=== PATIENT | female | born 1940 | race Caucasian/White ===

== ENCOUNTER 2017-12-01 14:17 | Outpatient (CLI) | payer MEDICARE, OTHER | END 2017-12-01 14:18 | disposition home or self-care (01) | LOC: BICMAMMO 14:17 | PROVIDERS: ATTEND Obstetrics & Gynecology | DX: Z12.31 Encounter for screening mammogram for malignant neoplasm of breast (principal) | CPT/HCPCS: 77063; 77067 ==

== ENCOUNTER 2018-10-28 12:30 | Inpatient (IN) | payer MEDICARE, OTHER ==
--- NOTE | 2018-11-04 13:42 | HP ---
HISTORY OF PRESENT ILLNESS: The patient is a 78-year-old female with a 2-year history of progressive right hip pain without injury. She also had some history of back pain with some radiation to her right leg. She had back surgery and fusion by Dr. Nix on 07/30/2018, which improved her back pain, but she has had continued right hip pain and groin pain, which is worse with ambulation. She has had persistent pain despite rest, NSAIDs, and previous cortisone injection and use of anti-inflammatory medication. She has not taken anti-inflammatory medication recently to prevent delayed healing of her lumbar fusion. Her hip pain is now interfering with day-to-day activities including walking, getting dressed, and sleeping. PAST MEDICAL HISTORY: The patient has history of hypertension and osteoporosis. CURRENT MEDICATIONS: 1. Multivitamins. 2. Vitamin D. 3. Aspirin 81 mg daily. 4. Carvedilol. 5. Crestor. 6. Losartan. 7. Hydrochlorothiazide. 8. Pantoprazole. ALLERGIES: SHE IS ALLERGIC TO SULFA. FAMILY HISTORY: Otherwise unremarkable. SOCIAL HISTORY: Otherwise unremarkable. REVIEW OF SYSTEMS: Otherwise unremarkable. PHYSICAL EXAMINATION: GENERAL: Reveals a healthy female. HEENT: Unremarkable. NECK: Supple. CHEST: Clear. HEART: Regular rate and rhythm. ABDOMEN: Soft and nontender. PELVIC: Deferred. RECTAL: Deferred. BREASTS: Deferred. EXTREMITIES: Pertinent findings of the right hip; her leg lengths were equal. There is tenderness over the greater trochanter and the anterior right hip. There is decreased range of motion on the right hip and groin pain with internal rotation of the hip, which reproduces her pain. There is a right antalgic gait. NEUROVASCULAR: Intact. Pulses are 1+. DIAGNOSTIC DATA: X-rays of the right hip reveals severe degenerative arthritis with no joint space remaining. There is a hardware present in the lower lumbar spine. IMPRESSION: 1. Degenerative arthritis, right hip. 2. Status post lumbar fusion. 3. History of hypertension. 4. History of osteoporosis. PLAN: Right total hip replacement. The nature of the surgery, length of recovery, and potential complications such as infection, loss of motion, incomplete relief , neurovascular injury, TE phenomena,, leg length discrepancy, possible transfusion, and need for revision have been discussed in detail. Job ID: [id number] [facility]
[2018-11-08] MEDS ORDERED: Fentanyl 100 MCG/2 ML VIAL ONE (06:18)
[2018-11-08] MEDS ORDERED: Midazolam HCl 2 mg/2 ml Vial ONE (06:18)
[2018-11-08] MEDS ORDERED: CEFAZOLIN 2 GM/50 ML BAG ONE (06:31)
[2018-11-08] MEDS ORDERED: Tranexamic Acid 1,000 MG/10 ML VIAL ONE ×2 (06:59→09:13)
[2018-11-08] MEDS ORDERED: Sodium Chloride 0.9% 100 ML ONE (06:59)
[2018-11-08] MEDS ORDERED: Naloxone HCl 0.4 mg/ml Vial IV PRN (07:15)
[2018-11-08] MEDS ORDERED: Promethazine HCl 25 MG SUPP PR PRN (07:15)
[2018-11-08] MEDS ORDERED: diphenhydrAMINE 50 MG/ML VIAL IM PRN (07:15)
[2018-11-08] MEDS ORDERED: Zolpidem Tartrate 5 MG TAB PO PRN ×2 (07:15→10:15)
[2018-11-08] MEDS ORDERED: diphenhydrAMINE 25 MG CAP PO PRN ×2 (07:15→10:15)
[2018-11-08] MEDS ORDERED: Ondansetron PF 4 MG/2 ML Vial IVP PRN ×2 (07:15→10:15)
[2018-11-08] MEDS ORDERED: traMADol HCl 50 MG TAB PO PRN ×2 (07:15→10:15)
[2018-11-08] MEDS ORDERED: Bupivacaine 0.25% 10 ML VIAL EPIDURAL PRN (07:15)
[2018-11-08] MEDS ORDERED: diphenhydrAMINE 50 MG/ML VIAL IVP PRN (07:15)
[2018-11-08] MEDS ORDERED: Hydrocerin (Eucerin) Cream 120 gm Jar TOP PRN (07:15)
[2018-11-08] MEDS ORDERED: Ropivacaine 0.2% HCl/PF 20 ML ONE (07:15)
[2018-11-08] MEDS ORDERED: Promethazine HCl 25 MG/ML VIAL IM PRN ×2 (07:15→08:06)
[2018-11-08] MEDS ORDERED: Naloxone HCl 0.4 mg/ml Vial IVP PRN (07:15)
[2018-11-08] MEDS ORDERED: Ondansetron HCl/PF 4 MG/2 ML Vial IVP PRN (08:06)
[2018-11-08] MEDS ORDERED: Promethazine HCl 25 MG/ML VIAL SLOW IVP PRN ×2 (08:06→10:15)
[2018-11-08] MEDS ORDERED: Tranexamic Acid 1,000 MG in Sodium Chloride 0.9% 100 ML IVPB SCH ×2 (09:15→10:15)
[2018-11-08] MEDS ORDERED: Fentanyl/Bupivacaine 100 ML EPIDURAL ONE (09:18)
[2018-11-08] MEDS ORDERED: Ondansetron PF 4 MG/2 ML Vial ONE ×2 (09:29→20:44)
--- NOTE | 2018-11-08 10:01 | OP ---
DATE OF PROCEDURE: 11/08/2018 PREOPERATIVE DIAGNOSIS: End-stage bicompartmental osteoarthritis, right hip. POSTOPERATIVE DIAGNOSIS: End-stage bicompartmental osteoarthritis, right hip. PROCEDURE PERFORMED: Press-fit right total hip arthroplasty. SURGEON: Prabhakar Babcock MD [employer] TR[employer] DRIVER: Sriram Jiménez PA-C ANESTHESIA: General via endotracheal tube augmented with indwelling epidural. COMPONENTS USED: [employer] Accolade size 3 primary press-fit hip stem with a Tritanium size 58 hemispherical press-fit acetabular shell, a 36 mm 10-degree polyethylene fixed bearing insert, and a 36 mm metallic femoral head with +5 neck offset. ESTIMATED BLOOD LOSS: 200 mL. INPUT: 2 L of crystalloid. OUTPUT: 600 mL of clear yellow urine. DRAINS: None. SPECIMENS: None. COMPLICATIONS: None. COUNTS: Correct. FINDINGS: End-stage severe degenerative bicompartmental disease, flattening of the femoral head, [id number] arthrosis, periarticular osteophyte formation, large serous effusion, and hypertrophic synovium. INDICATIONS FOR SURGERY: Anali is a 78-year-old white female, who has had progressive right hip, groin, and thigh pain and problem with standing and walking for the last 5 to 7 years. She has failed conservative management and elected to proceed with total hip arthroplasty as definitive treatment of her pain. PROCEDURE IN DETAIL: After informed consent was obtained in the preoperative holding area, the patient was taken to the operative suite where general anesthesia was induced. The patient was then positioned in the lateral decubitus position. The hip was then prepped and draped in usual sterile fashion. The patient received preoperative antibiotics. Prior to incision, time-out was called and all members of the surgical team agreed upon site, surgeon, and patient. After this, a longitudinal incision was made directly over the trochanter, noted by palpation extending 2 fingerbreadths above and below the trochanter. The deeper subcutaneous layer was undermined with Bovie electrocautery. The iliotibial band was encountered and incised sharply and the plane below this was developed bluntly. A Charnley retractor was placed to hold this opened. The lateral aspect of the trochanter and the abductor muscles were encountered and then reflected anteriorly off the trochanter using Bovie electrocautery. Once this was completed, the anterior capsule was then encountered and identified and copious capsulotomy was carried out, exposing the femoral neck and head. Dislocation maneuver was then performed and an in situ provisional neck cut was then made using the oscillating saw. Attention was then turned to acetabular preparation. Sequential reaming was carried out up to the appropriate diameter and a trial was then malleted into place with good firm resistance and no pullout. The permanent acetabular shell was then malleted squarely into place, as was the appropriate liner. Once completed, the wound was copiously irrigated and attention was then turned to femoral preparation. Flexion and external rotation were performed of the exposed thigh and femoral elevators were then placed at the proximal aspect of the wound. Canal finder was used to establish the length of the canal and sequential reaming was carried out, followed by broaching. Once the appropriate stability was established with the trial broaches with flexion, extension and rotational stability, we did trial with neutral and 2 mm offset incremental necks. Once the appropriate size was decided upon, with good stability noted with flexion, extension, internal and external rotation and shuck being negative, we removed the femoral trial broach and malletted into place the permanent prosthesis with good firm fit, which was also stable to rotation. Again, the hip felt very stable to flexion, extension, internal and external rotation. Leg lengths appeared near anatomic clinically and we were quite happy with prosthesis placement. Copious irrigation was then carried out through the entirety of the wound. Primary closure of the abductors was accomplished with interrupted #2 Vicryl [id number] stitches and the IT band was then closed with interrupted #2 Vicryl, oversewn with a #2 running barbed Quill stitch. Subcutaneous fascia was closed with running barbed Quill stitch and a subcuticular Monocryl barbed Quill stitch was used for skin closure and augmented with skin cement. A sterile dressing was applied. The procedure was terminated without any complication. All counts were correct. The patient was awakened in the operative suite and taken to the recovery room in stable condition. Job ID: [id number]
[2018-11-08] MEDS ORDERED: Acetaminophen/Codeine 30-300mg Tablet PO PRN ×2 (10:15)
[2018-11-08] MEDS ORDERED: Fentanyl 100 MCG/2 ML VIAL SLOW IVP PRN ×2 (10:15)
[2018-11-08] MEDS ORDERED: CEFAZOLIN/Water 2 GM/20 ML SYRINGE SLOW IVP SCH (10:15)
[2018-11-08] MEDS ORDERED: Aspirin 81 mg Enteric Coated Tablet PO SCH (10:45)
[2018-11-08] MEDS ORDERED: Losartan 25 MG TAB PO SCH (10:45)
[2018-11-08] MEDS ORDERED: Carvedilol 25 MG TAB PO SCH (10:45)
[2018-11-08] MEDS ORDERED: Hydrochlorothiazide 25 MG TAB PO SCH (10:45)
--- NOTE | 2018-11-08 11:16 | RAD ---
TWO VIEWS OF RIGHT HIP: INDICATION: History of right hip pain and postop right hip. COMPARISON: None. FINDINGS: There is a right total hip prosthesis that projects in the expected position. There is instrumentati on involving the lower lumbar spine. No definite acute osseous abnormality is evident. IMPRESSION: Postoperative right hip. Right total hip prosthesis projects in the expected position without gross evidence of complication. POS: TPC
[2018-11-08] MEDS: Acetaminophen 1,000 MG in Premix Bag 1 BAG IVPB PRN ×2 (11:48→19:59)
[2018-11-08] MEDS: Sodium Chloride 0.9% 1,000 ML IV SCH ×2 (12:02→21:35)
[2018-11-08] MEDS: CEFAZOLIN 2 GM/50 ML-DEXTROSE 2 GM in Premix Bag 1 BAG IVPB SCH ×2 (15:07→21:35)
[2018-11-08] MEDS ORDERED: Vancomycin HCl 1 GM in Premix Bag 1 BAG IVPB SCH (18:00)
[2018-11-08] MEDS: Rosuvastatin 10 MG TAB PO SCH (19:58)
[2018-11-08] MEDS: Loratadine 10 MG TAB PO SCH (19:58)
[2018-11-08] MEDS: Carvedilol 25 MG TAB PO SCH (19:59)
[2018-11-08] MEDS: Aspirin 81 mg Enteric Coated Tablet PO SCH (19:59)
[2018-11-08] MEDS ORDERED: Lidocaine 1% PF 5 ML VIAL ONE (20:44)
[2018-11-08] MEDS ORDERED: PROPOFOL 200 MG/20 ML VIAL ONE (20:44)
[2018-11-08] MEDS ORDERED: ePHEDrine/0.9% NaCl/PF SYRINGE 50 mg/10 ml ONE (20:44)
[2018-11-08] MEDS ORDERED: Glycopyrrolate 0.2 MG/ML 5 ML SYRINGE ONE (20:44)
[2018-11-08] MEDS ORDERED: PHENYLEPHRINE-NS 100 MCG/ML 10 ML SYRINGE ONE (20:44)
--- NOTE | 2018-11-08 22:39 | PDOC.PN ---
- Subjective Encounter Start Date: 11/08/18 Encounter Start Time: 13:00 Patient seen and examined for med mngt. No new complaints. Follows Dr Eaton. - Objective MAR Reviewed: Yes Vital Signs & Weight: Vital Signs (12 hours) Temp Pulse Resp BP Pulse Ox 11/08/18 20:44 93 L 11/08/18 20:21 98.8 F 80 20 152/69 H 93 L 11/08/18 12:00 95 Weight Weight 150 lb I&O: 11/07/18 11/08/18 11/09/18 06:59 06:59 06:59 Intake Total 1550 Output Total 750 Balance 800 EKG Reviewed by me: Yes (SR) Phys Exam - Physical Examination Constitutional: NAD Respiratory: no wheezing, no rhonchi Cardiovascular: RRR, no rub Gastrointestinal: soft, non-tender, positive bowel sounds Musculoskeletal: no edema Neurological: moves all 4 limbs Dx/Plan (1) HTN (hypertension) Code(s): I10 - ESSENTIAL (PRIMARY) HYPERTENSION Status: Chronic (2) HLD (hyperlipidemia) Code(s): E78.5 - HYPERLIPIDEMIA, UNSPECIFIED Status: Chronic (3) GERD (gastroesophageal reflux disease) Code(s): K21.9 - GASTRO-ESOPHAGEAL REFLUX DISEASE WITHOUT ESOPHAGITIS Status: Chronic (4) Chronic insomnia Code(s): F51.04 - PSYCHOPHYSIOLOGIC INSOMNIA Status: Chronic (5) CKD (chronic kidney disease) stage 3, GFR 30-59 ml/min Code(s): N18.3 - CHRONIC KIDNEY DISEASE, STAGE 3 (MODERATE) Status: Chronic - Plan DVT proph w/SCDs * Cont Coreg * Hold Losartan and HCTZ * Add PRN HTN med * Cont Protonix * AM labs * Wll follow. Thank you for this consultation. * Full code. DPOA - self/family Review of Systems - Review of Systems Respiratory: negative: Cough, Dry, Shortness of Breath, Hemoptysis, SOB with Excertion, Pleuritic Pain, Sputum, Wheezing Cardiovascular: negative: chest pain, palpitations, orthopnea, paroxysmal nocturnal dyspnea, edema, light headedness, other - Medications/Allergies Allergies/Adverse Reactions: Allergies Allergy/AdvReac Type Severity Reaction Status Date / Time hydrocodone Allergy Nausea Verified 11/01/18 16:44 Sulfa (Sulfonamide Allergy Verified 12/06/18 12:54 Antibiotics) Medications: Current Medications Acetaminophen (Tylenol) 650 mg PO Q4H PRN PRN Reason: Headache/Fever or Pain Aspirin (Ecotrin) 81 mg PO BID [facility] Last Admin: 11/08/18 19:59 Dose: 81 mg Carvedilol (Coreg) 25 mg PO BID [facility] Last Admin: 11/08/18 19:59 Dose: 25 mg Diphenhydramine HCl (Benadryl) 25 mg PO Q3H PRN PRN Reason: Itching Diphenhydramine HCl (Benadryl) 25 mg IM Q3H PRN PRN Reason: Itching Diphenhydramine HCl (Benadryl) 25 mg IVP Q3H PRN PRN Reason: Itching Emollient Cream (Hydrocerin Cream) 0 gm TOP PRN PRN PRN Reason: Itching Ferrous Gluconate (Fergon) 324 mg PO BID-[facility] Hydrochlorothiazide (Hydrochlorothiazide) 12.5 mg PO DAILY [facility] Fentanyl Citrate (Fentanyl/Bupivacaine) 100 mls @ 0 mls/hr EPIDURAL INF [facility] Acetaminophen 1,000 mg/ Device 100 mls @ 400 mls/hr IVPB Q6H PRN PRN Reason: PAIN/FEVER Stop: 11/09/18 07:12 Last Admin: 11/08/18 19:59 Dose: 100 mls Sodium Chloride (Normal Saline 0.9%) 1,000 mls @ 100 mls/hr IV .Q10H [facility] Last Admin: 11/08/18 21:35 Dose: 1,000 mls Cefazolin Sodium/Dextrose 2 gm (/ Device) 50 mls @ 100 mls/hr IVPB 0700,1500, 2300 [facility] Stop: 11/08/18 23:29 Last Admin: 11/08/18 21:35 Dose: 50 mls Iron/Minerals/Multivitamins (Theragran M) 1 tab PO DAILY [facility] Loratadine (Claritin) 10 mg PO HS [facility] Last Admin: 11/08/18 19:58 Dose: 10 mg Losartan Potassium (Cozaar) 25 mg PO DAILY [facility] Miscellaneous Information (Communication Order-Pharmacy) 1 each FS ASDIR [facility] Naloxone HCl (Narcan) 0.2 mg IV Q5MIN PRN PRN Reason: RR <=8 OR OBTUNDED/UNAROUSABLE Naloxone HCl (Narcan) 0.1 mg IVP Q15MIN PRN PRN Reason: URINARY RETENTION Ondansetron HCl (Zofran) 4 mg IVP Q6H PRN PRN Reason: Nausea/Vomiting Pantoprazole Sodium (Protonix) 40 mg PO DAILY [facility] Promethazine HCl (Phenergan) 12.5 mg IM Q4H PRN PRN Reason: Nausea Promethazine HCl (Phenergan Suppository) 25 mg [place] Q4H PRN PRN Reason: Nausea/Vomiting Promethazine HCl (Phenergan) 12.5 mg SLOW IVP Q4H PRN PRN Reason: Nausea/Vomiting Rosuvastatin Calcium (Crestor) 10 mg PO HS [facility] Last Admin: 11/08/18 19:58 Dose: 10 mg Senna/Docusate Sodium (Senokot S) 2 tab PO BID [facility] Sodium Chloride (Flush - Normal Saline) 10 ml IVF Q12HR [facility] Last Admin: 11/08/18 21:44 Dose: Not Given Sodium Chloride (Flush - Normal Saline) 10 ml IVF PRN PRN PRN Reason: Saline Flush Tramadol HCl (Ultram) 50 mg PO Q6H PRN PRN Reason: Mild Pain 1-3 Last Admin: 11/08/18 15:16 Dose: 50 mg Tramadol HCl (Ultram) 100 mg PO Q6H PRN PRN Reason: Moderate Pain 4-6 Zolpidem Tartrate (Ambien) 5 mg PO HSPRN PRN PRN Reason: Insomnia Last Admin: 11/08/18 21:34 Dose: 5 mg
[2018-11-08] MEDS ORDERED: hydrALAZINE 20 MG/ML VIAL SLOW IVP PRN (22:42)
[2018-11-09] MEDS: traMADol HCl 50 MG TAB PO PRN ×2 (00:50→13:05)
[2018-11-09] MEDS: Acetaminophen 1,000 MG in Premix Bag 1 BAG IVPB PRN (02:16)
[2018-11-09] MEDS: Fentanyl/Bupivacaine 100 ML EPIDURAL SCH ×2 (02:19→17:47)
[2018-11-09 05:52] LABS: Hemoglobin 8.5 g/dL (12.0-16.0); Mean Corpuscular HGB CONC 33.9 g/dL (32.0-36.0); Mean Corpuscular Hemoglobin 30.1 pg (27.0-31.0); Mean Corpuscular Volume 88.9 fL (78.0-98.0); Mean Platelet Volume 8.4 fL (7.4-10.4); Platelet Count 185 thou/uL (130-400); RBC Distribution Width 11.6 % (11.5-14.5); White Blood Cell (WBC) Count 8.3 thou/uL (4.8-10.8)
[2018-11-09 06:13] LABS: Anion Gap 14 mmol/L (10-20); BUN (Urea Nitrogen) 24 mg/dL (9.8-20.1); Calc. Creatinine Clearance 25 mL/min (70-130); Calcium 8.8 mg/dL (7.8-10.44); Carbon Dioxide 24 mmol/L (23-31); Chloride 105 mmol/L (98-107); Estimated GFR-MDRD 24; Glucose 133 mg/dL (83-110); Magnesium 1.5 mg/dL (1.6-2.6); Potassium 3.5 mmol/L (3.5-5.1); Sodium 139 mmol/L (136-145)
[2018-11-09] MEDS: Sodium Chloride 0.9% 1,000 ML IV SCH ×2 (06:52→22:01)
[2018-11-09] MEDS: Ferrous Gluconate 324 MG TAB PO SCH ×2 (08:15→18:01)
[2018-11-09] MEDS: Carvedilol 25 MG TAB PO SCH (08:16)
[2018-11-09] MEDS: Aspirin 81 mg Enteric Coated Tablet PO SCH ×2 (08:16→20:58)
[2018-11-09] MEDS: Senokot S 8.6-50 MG TAB PO SCH ×2 (08:16→20:58)
[2018-11-09] MEDS: Multivitamin W/ Minerals 1 TAB PO SCH (08:16)
[2018-11-09] MEDS ORDERED: Hydrochlorothiazide 25 MG TAB PO SCH (09:00)
[2018-11-09] MEDS ORDERED: Losartan 25 MG TAB PO SCH (09:00)
[2018-11-09] MEDS: Acetaminophen 325 MG TAB PO PRN (13:08)
--- NOTE | 2018-11-09 18:49 | PDOC.PN ---
- Subjective Encounter Start Date: 11/09/18 Encounter Start Time: 12:30 Patient seen and examined for med mngt. No new complaints. No overnight events - Objective MAR Reviewed: Yes Vital Signs & Weight: Vital Signs (12 hours) Temp Pulse Resp BP BP Pulse Ox Pulse Ox 11/09/18 16:00 98.4 F 81 18 106/61 90 L 11/09/18 12:00 99.6 F 87 14 110/71 91 L 11/09/18 11:15 110/71 91 L 11/09/18 07:37 98.5 F 89 14 151/72 H 90 L 11/09/18 07:33 95 Weight Weight 150 lb I&O: 11/08/18 11/09/18 11/10/18 06:59 06:59 06:59 Intake Total 3300 Output Total 2625 Balance 675 Result Diagrams: 11/09/18 05:18 11/09/18 05:18 Phys Exam - Physical Examination Constitutional: NAD Musculoskeletal: no edema Neurological: moves all 4 limbs Psychiatric: A&O x 3 Dx/Plan (1) HTN (hypertension) Code(s): I10 - ESSENTIAL (PRIMARY) HYPERTENSION Status: Chronic (2) HLD (hyperlipidemia) Code(s): E78.5 - HYPERLIPIDEMIA, UNSPECIFIED Status: Chronic (3) GERD (gastroesophageal reflux disease) Code(s): K21.9 - GASTRO-ESOPHAGEAL REFLUX DISEASE WITHOUT ESOPHAGITIS Status: Chronic (4) Hypomagnesemia Code(s): E83.42 - HYPOMAGNESEMIA Status: Acute (5) Chronic insomnia Code(s): F51.04 - PSYCHOPHYSIOLOGIC INSOMNIA Status: Chronic (6) CKD (chronic kidney disease) stage 3, GFR 30-59 ml/min Code(s): N18.3 - CHRONIC KIDNEY DISEASE, STAGE 3 (MODERATE) Status: Chronic - Plan DVT proph w/SCDs * Cont Coreg - reduce dose * Losartan and HCTZ on hold * Cont PRN HTN med * Cont PPI * AM labs * Replace Magnessium Review of Systems - Review of Systems Constitutional: negative: fever, chills, sweats, weakness, malaise, other Respiratory: negative: Cough, Dry, Shortness of Breath, Hemoptysis, SOB with Excertion, Pleuritic Pain, Sputum, Wheezing Cardiovascular: negative: chest pain, palpitations, orthopnea, paroxysmal nocturnal dyspnea, edema, light headedness, other - Medications/Allergies Allergies/Adverse Reactions: Allergies Allergy/AdvReac Type Severity Reaction Status Date / Time hydrocodone Allergy Nausea Verified 11/01/18 16:44 Sulfa (Sulfonamide Allergy Verified 10/28/18 12:54 Antibiotics) Medications: Current Medications Acetaminophen (Tylenol) 650 mg PO Q4H PRN PRN Reason: Headache/Fever or Pain Last Admin: 11/09/18 13:08 Dose: 650 mg Aspirin (Ecotrin) 81 mg PO BID [facility] Last Admin: 11/09/18 08:16 Dose: 81 mg Carvedilol (Coreg) 12.5 mg PO BID [facility] Diphenhydramine HCl (Benadryl) 25 mg PO Q3H PRN PRN Reason: Itching Diphenhydramine HCl (Benadryl) 25 mg IM Q3H PRN PRN Reason: Itching Diphenhydramine HCl (Benadryl) 25 mg IVP Q3H PRN PRN Reason: Itching Emollient Cream (Hydrocerin Cream) 0 gm TOP PRN PRN PRN Reason: Itching Ferrous Gluconate (Fergon) 324 mg PO BID-[facility] Last Admin: 11/09/18 18:01 Dose: 324 mg Hydralazine HCl (Apresoline) 10 mg SLOW IVP Q4H PRN PRN Reason: SBP Greater Than 180 Fentanyl Citrate (Fentanyl/Bupivacaine) 100 mls @ 0 mls/hr EPIDURAL INF [facility] Last Admin: 11/09/18 17:47 Dose: 100 mls Sodium Chloride (Normal Saline 0.9%) 1,000 mls @ 100 mls/hr IV .Q10H [facility] Last Admin: 11/09/18 06:52 Dose: Not Given Magnesium Sulfate 2 gm/ Sodium (Chloride) 104 mls @ 100 mls/hr IVPB [facility] Iron/Minerals/Multivitamins (Theragran M) 1 tab PO DAILY [facility] Last Admin: 11/09/18 08:16 Dose: 1 tab Loratadine (Claritin) 10 mg PO HS [facility] Last Admin: 11/08/18 19:58 Dose: 10 mg Miscellaneous Information (Communication Order-Pharmacy) 1 each FS ASDIR [facility] Naloxone HCl (Narcan) 0.2 mg IV Q5MIN PRN PRN Reason: RR <=8 OR OBTUNDED/UNAROUSABLE Naloxone HCl (Narcan) 0.1 mg IVP Q15MIN PRN PRN Reason: URINARY RETENTION Ondansetron HCl (Zofran) 4 mg IVP Q6H PRN PRN Reason: Nausea/Vomiting Pantoprazole Sodium (Protonix) 40 mg PO DAILY [facility] Last Admin: 11/09/18 08:17 Dose: 40 mg Promethazine HCl (Phenergan) 12.5 mg IM Q4H PRN PRN Reason: Nausea Last Admin: 11/09/18 03:08 Dose: 12.5 mg Promethazine HCl (Phenergan Suppository) 25 mg [place] Q4H PRN PRN Reason: Nausea/Vomiting Promethazine HCl (Phenergan) 12.5 mg SLOW IVP Q4H PRN PRN Reason: Nausea/Vomiting Rosuvastatin Calcium (Crestor) 10 mg PO HS [facility] Last Admin: 11/08/18 19:58 Dose: 10 mg Senna/Docusate Sodium (Senokot S) 2 tab PO BID [facility] Last Admin: 11/09/18 08:16 Dose: 2 tab Sodium Chloride (Flush - Normal Saline) 10 ml IVF Q12HR [facility] Last Admin: 11/09/18 08:17 Dose: 10 ml Sodium Chloride (Flush - Normal Saline) 10 ml IVF PRN PRN PRN Reason: Saline Flush Tramadol HCl (Ultram) 50 mg PO Q6H PRN PRN Reason: Mild Pain 1-3 Last Admin: 11/08/18 15:16 Dose: 50 mg Tramadol HCl (Ultram) 100 mg PO Q6H PRN PRN Reason: Moderate Pain 4-6 Last Admin: 11/09/18 13:05 Dose: 100 mg Zolpidem Tartrate (Ambien) 5 mg PO HSPRN PRN PRN Reason: Insomnia Last Admin: 11/08/18 21:34 Dose: 5 mg
[2018-11-09] MEDS ORDERED: Magnesium 2 GM/50 ML 2 GM in Premix Bag 1 BAG IVPB SCH (19:00)
[2018-11-09] MEDS: Rosuvastatin 10 MG TAB PO SCH (20:56)
[2018-11-09] MEDS: Loratadine 10 MG TAB PO SCH (20:58)
[2018-11-09] MEDS ORDERED: Carvedilol 6.25 MG TAB PO SCH (21:00)
[2018-11-10] MEDS: Fentanyl/Bupivacaine 100 ML EPIDURAL SCH ×2 (04:04→16:47)
[2018-11-10 05:44] LABS: Hemoglobin 7.6 g/dL (12.0-16.0); Mean Corpuscular HGB CONC 33.9 g/dL (32.0-36.0); Mean Corpuscular Hemoglobin 30.7 pg (27.0-31.0); Mean Corpuscular Volume 90.7 fL (78.0-98.0); Platelet Count 159 thou/uL (130-400); RBC Distribution Width 11.8 % (11.5-14.5); Red Blood Cell (RBC) Count 2.47 mill/uL (4.20-5.40); White Blood Cell (WBC) Count 9.1 thou/uL (4.8-10.8)
[2018-11-10 05:59] LABS: Anion Gap 10 mmol/L (10-20); BUN (Urea Nitrogen) 26 mg/dL (9.8-20.1); Calc. Creatinine Clearance 27 mL/min (70-130); Calcium 8.3 mg/dL (7.8-10.44); Carbon Dioxide 27 mmol/L (23-31); Chloride 104 mmol/L (98-107); Estimated GFR-MDRD 27; Glucose 137 mg/dL (83-110); Potassium 3.7 mmol/L (3.5-5.1); Sodium 137 mmol/L (136-145)
[2018-11-10] MEDS: Sodium Chloride 0.9% 1,000 ML IV SCH ×4 (09:09→20:54)
[2018-11-10] MEDS: Multivitamin W/ Minerals 1 TAB PO SCH (09:09)
[2018-11-10] MEDS: Ferrous Gluconate 324 MG TAB PO SCH ×2 (09:09→16:48)
[2018-11-10] MEDS: Aspirin 81 mg Enteric Coated Tablet PO SCH ×2 (09:10→20:47)
[2018-11-10] MEDS: Senokot S 8.6-50 MG TAB PO SCH ×3 (09:10→20:53)
--- NOTE | 2018-11-10 15:43 | PDOC.PN ---
- Subjective Encounter Start Date: 11/10/18 Encounter Start Time: 12:30 Patient seen and examined for med mngt. Dec Urine output last night per RN. On IVF. No new complaints. - Objective MAR Reviewed: Yes Vital Signs & Weight: Vital Signs (12 hours) Temp Pulse Pulse Resp BP BP BP 11/10/18 12:10 99.0 F 75 18 105/57 L 11/10/18 11:52 98.9 F 76 18 119/65 11/10/18 11:46 98.5 F 80 16 126/66 11/10/18 09:14 97/51 L 11/10/18 08:00 98.5 F 80 15 100/55 L 11/10/18 03:59 99.5 F 84 20 105/63 Pulse Ox Pulse Ox 11/10/18 12:10 11/10/18 11:52 11/10/18 11:46 93 L 11/10/18 09:14 94 L 11/10/18 08:00 94 L 11/10/18 03:59 97 Weight Weight 150 lb I&O: 11/09/18 11/10/18 11/11/18 06:59 06:59 06:59 Intake Total 3300 2900 0 Output Total 2625 700 Balance 675 2200 0 Result Diagrams: 11/10/18 05:26 11/10/18 05:26 Phys Exam - Physical Examination Constitutional: NAD Respiratory: no wheezing, no rhonchi Cardiovascular: RRR, no rub Gastrointestinal: soft, non-tender, positive bowel sounds Musculoskeletal: no edema Neurological: moves all 4 limbs Dx/Plan (1) HTN (hypertension) Code(s): I10 - ESSENTIAL (PRIMARY) HYPERTENSION Status: Chronic (2) HLD (hyperlipidemia) Code(s): E78.5 - HYPERLIPIDEMIA, UNSPECIFIED Status: Chronic (3) GERD (gastroesophageal reflux disease) Code(s): K21.9 - GASTRO-ESOPHAGEAL REFLUX DISEASE WITHOUT ESOPHAGITIS Status: Chronic (4) Hypomagnesemia Code(s): E83.42 - HYPOMAGNESEMIA Status: Acute (5) Chronic insomnia Code(s): F51.04 - PSYCHOPHYSIOLOGIC INSOMNIA Status: Chronic (6) CKD (chronic kidney disease) stage 3, GFR 30-59 ml/min Code(s): N18.3 - CHRONIC KIDNEY DISEASE, STAGE 3 (MODERATE) Status: Chronic Comment: with GABINO - Plan DVT proph w/SCDs * Cont IVF * Hold Coreg due to low BP * Losartan and HCTZ on hold * Cont PRN HTN med and PPI * AM labs Review of Systems - Review of Systems Respiratory: negative: Cough, Dry, Shortness of Breath, Hemoptysis, SOB with Excertion, Pleuritic Pain, Sputum, Wheezing Cardiovascular: negative: chest pain, palpitations, orthopnea, paroxysmal nocturnal dyspnea, edema, light headedness, other - Medications/Allergies Allergies/Adverse Reactions: Allergies Allergy/AdvReac Type Severity Reaction Status Date / Time hydrocodone Allergy Nausea Verified 11/01/18 16:44 Sulfa (Sulfonamide Allergy Verified 10/28/18 12:54 Antibiotics) Medications: Current Medications Acetaminophen (Tylenol) 650 mg PO Q4H PRN PRN Reason: Headache/Fever or Pain Last Admin: 11/09/18 13:08 Dose: 650 mg Aspirin (Ecotrin) 81 mg PO BID [facility] Last Admin: 11/10/18 09:10 Dose: 81 mg Carvedilol (Coreg) 12.5 mg PO BID [facility] Last Admin: 11/09/18 20:57 Dose: Not Given Diphenhydramine HCl (Benadryl) 25 mg PO Q3H PRN PRN Reason: Itching Diphenhydramine HCl (Benadryl) 25 mg IM Q3H PRN PRN Reason: Itching Diphenhydramine HCl (Benadryl) 25 mg IVP Q3H PRN PRN Reason: Itching Emollient Cream (Hydrocerin Cream) 0 gm TOP PRN PRN PRN Reason: Itching Ferrous Gluconate (Fergon) 324 mg PO BID-[facility] Last Admin: 11/10/18 09:09 Dose: 324 mg Hydralazine HCl (Apresoline) 10 mg SLOW IVP Q4H PRN PRN Reason: SBP Greater Than 180 Fentanyl Citrate (Fentanyl/Bupivacaine) 100 mls @ 0 mls/hr EPIDURAL INF [facility] Last Admin: 11/10/18 04:04 Dose: 100 mls Sodium Chloride (Normal Saline 0.9%) 1,000 mls @ 125 mls/hr IV .Q8H [facility] Last Admin: 11/10/18 09:09 Dose: 1,000 mls Iron/Minerals/Multivitamins (Theragran M) 1 tab PO DAILY [facility] Last Admin: 11/10/18 09:09 Dose: 1 tab Loratadine (Claritin) 10 mg PO HS [facility] Last Admin: 11/09/18 20:58 Dose: 10 mg Miscellaneous Information (Communication Order-Pharmacy) 1 each FS ASDIR [facility] Naloxone HCl (Narcan) 0.2 mg IV Q5MIN PRN PRN Reason: RR <=8 OR OBTUNDED/UNAROUSABLE Naloxone HCl (Narcan) 0.1 mg IVP Q15MIN PRN PRN Reason: URINARY RETENTION Ondansetron HCl (Zofran) 4 mg IVP Q6H PRN PRN Reason: Nausea/Vomiting Pantoprazole Sodium (Protonix) 40 mg PO DAILY [facility] Last Admin: 11/10/18 09:10 Dose: 40 mg Promethazine HCl (Phenergan) 12.5 mg IM Q4H PRN PRN Reason: Nausea Last Admin: 11/09/18 03:08 Dose: 12.5 mg Promethazine HCl (Phenergan Suppository) 25 mg [place] Q4H PRN PRN Reason: Nausea/Vomiting Promethazine HCl (Phenergan) 12.5 mg SLOW IVP Q4H PRN PRN Reason: Nausea/Vomiting Rosuvastatin Calcium (Crestor) 10 mg PO [facility] Last Admin: 11/09/18 20:56 Dose: 10 mg Senna/Docusate Sodium (Senokot S) 2 tab PO BID [facility] Last Admin: 11/10/18 09:10 Dose: 2 tab Sodium Chloride (Flush - Normal Saline) 10 ml IVF Q12HR [facility] Last Admin: 11/10/18 09:02 Dose: Not Given Sodium Chloride (Flush - Normal Saline) 10 ml IVF PRN PRN PRN Reason: Saline Flush Tramadol HCl (Ultram) 50 mg PO Q6H PRN PRN Reason: Mild Pain 1-3 Last Admin: 11/08/18 15:16 Dose: 50 mg Tramadol HCl (Ultram) 100 mg PO Q6H PRN PRN Reason: Moderate Pain 4-6 Last Admin: 11/09/18 13:05 Dose: 100 mg Zolpidem Tartrate (Ambien) 5 mg PO HSPRN PRN PRN Reason: Insomnia Last Admin: 11/08/18 21:34 Dose: 5 mg
[2018-11-10] MEDS: Loratadine 10 MG TAB PO SCH (20:47)
[2018-11-10] MEDS: Rosuvastatin 10 MG TAB PO SCH (20:47)
[2018-11-11] MEDS: Fentanyl/Bupivacaine 100 ML EPIDURAL SCH (05:38)
[2018-11-11] MEDS: Sodium Chloride 0.9% 1,000 ML IV SCH (06:19)
[2018-11-11 08:13] LABS: Hemoglobin 8.2 g/dL (12.0-16.0); Mean Corpuscular HGB CONC 33.9 g/dL (32.0-36.0); Mean Corpuscular Hemoglobin 30.5 pg (27.0-31.0); Mean Corpuscular Volume 90.1 fL (78.0-98.0); Mean Platelet Volume 8.3 fL (7.4-10.4); Platelet Count 163 thou/uL (130-400); RBC Distribution Width 12.1 % (11.5-14.5); Red Blood Cell (RBC) Count 2.69 mill/uL (4.20-5.40); White Blood Cell (WBC) Count 6.9 thou/uL (4.8-10.8)
[2018-11-11 08:24] LABS: Anion Gap 13 mmol/L (10-20); BUN (Urea Nitrogen) 19 mg/dL (9.8-20.1); Calc. Creatinine Clearance 36 mL/min (70-130); Calcium 7.9 mg/dL (7.8-10.44); Carbon Dioxide 21 mmol/L (23-31); Chloride 107 mmol/L (98-107); Estimated GFR-MDRD 37; Glucose 108 mg/dL (83-110); Potassium 3.3 mmol/L (3.5-5.1); Sodium 138 mmol/L (136-145)
[2018-11-11] MEDS ORDERED: Sodium Chloride 0.9% 1,000 ML IV SCH (08:31)
[2018-11-11] MEDS ORDERED: Potassium Chloride 20 MEQ TAB PO SCH ×2 (08:45→17:00)
[2018-11-11] MEDS: Ferrous Gluconate 324 MG TAB PO SCH (09:33)
[2018-11-11] MEDS: Aspirin 81 mg Enteric Coated Tablet PO SCH (09:38)
[2018-11-11] MEDS: Senokot S 8.6-50 MG TAB PO SCH (09:38)
[2018-11-11] MEDS: Multivitamin W/ Minerals 1 TAB PO SCH (09:39)
[2018-11-11] MEDS: traMADol HCl 50 MG TAB PO PRN (11:52)
[2018-11-11] MEDS: Acetaminophen 325 MG TAB PO PRN (11:53)
[2018-11-11 12:15] VITALS: BP 152/72; TEMP 99
[2018-11-11 12:25] VITALS: BMI 24.2
--- NOTE | 2018-11-12 11:20 | PRG ---
DATE OF SERVICE: 11/11/2018 SUBJECTIVE: The patient denies any new complaints. No chest pain, shortness of breath, or palpitations. OBJECTIVE: VITAL SIGNS: This morning, the temperature was 98.1, pulse rate of 80, respirations 18, blood pressure 111/67, and O2 saturation 95% on room air. GENERAL: The patient in no apparent distress. NEUROLOGY: The patient is alert, awake, and oriented x3. EXTREMITIES: No edema or calf tenderness. LABORATORY FINDINGS: WBC 6.9 with hemoglobin 8.2. She received 1 unit of PRBC yesterday. Creatinine down to 1.39 from 1.83 yesterday. Potassium is 3.3. IMPRESSION: 1. Hypertension. 2. Hyperlipidemia. 3. Gastroesophageal reflux disease. 4. Acute kidney injury on chronic kidney disease, stage 3. 5. Chronic insomnia. 6. Hypomagnesemia, replaced. 7. Hypokalemia. PLAN: Hydrochlorothiazide and losartan are currently on hold. The patient takes 25 mg carvedilol at home twice a day. We will send a new prescription for carvedilol 6.25 twice a day. The patient was advised to monitor her blood pressure on a daily basis. She was advised to increase the carvedilol to 12.5 twice a day, if her systolic blood pressure is over 130. She was also advised to increase carvedilol back to home dose, if her systolic blood pressure remains over 150. She will benefit from repeat labs as outpatient. She was advised to hold hydrochlorothiazide and losartan due to acute kidney injury. Again, her creatinine on the day of discharge is 1.39 from 2.0 on admission. Her potassium has been replaced. Job ID: [id number]
== END 2018-11-11 14:02 | disposition home or self-care (01) | DRG 470 ==
LOC: SJJU 11-08 05:37
PROVIDERS: ADMIT Orthopaedic Surgery; ATTEND Orthopaedic Surgery
PROC: 0SR902A Replacement of Right Hip Joint with Metal on Polyethylene Synthetic Substitute, Uncemented, Open Approach (ICD-10-PCS; principal; 2018-11-08)
PROC: 30233N1 Transfusion of Nonautologous Red Blood Cells into Peripheral Vein, Percutaneous Approach (ICD-10-PCS; 2018-11-10)
DX: M16.11 Unilateral primary osteoarthritis, right hip (principal); N17.9 Acute kidney failure, unspecified; M81.0 Age-related osteoporosis without current pathological fracture; E78.5 Hyperlipidemia, unspecified; K21.9 Gastro-esophageal reflux disease without esophagitis; I12.9 Hypertensive chronic kidney disease with stage 1 through stage 4 chronic kidney disease, or unspecified chronic kidney disease; N18.3 Chronic kidney disease, stage 3 (moderate); F51.04 Psychophysiologic insomnia; E83.42 Hypomagnesemia; E87.6 Hypokalemia; E78.2 Mixed hyperlipidemia; Z88.2 Allergy status to sulfonamides; Z79.82 Long term (current) use of aspirin; Z79.899 Other long term (current) drug therapy; Z98.1 Arthrodesis status
CPT/HCPCS: 36415; 36430; 80048; 83735; 85027; 86850; 86900; 86901; C1776; G8978-GP-CK; G8979-GP-CI; G8987-GO-CJ; G8988-GO-CI; J0131; J1200; J2001; J2250; J2405; J2550; J2704; J2795; J3010; J3370; J7050; P9016

== ENCOUNTER 2018-10-28 12:35 | Outpatient (CLI) | payer MEDICARE, OTHER ==
[2018-10-28 14:15] LABS: Bilirubin Small (Negative); Blood, Urine Negative (Negative); Clarity CLEAR (Clear); Glucose, Urine (Dipstick) Negative (Negative); Leukocyte Small (Negative); Nitrite Negative (Negative); Protein, Urine (Dipstick) 30 mg/dL (Neg-Trace); Prothrombin Time 13.3 SEC (12.0-14.7); Specific Gravity, Urine 1.034 (1.002-1.036); Urobilinogen 0.2 mg/dL (0.2-1.0)
[2018-10-28 14:21] LABS: Bacteria/HPF None Seen HPF (None Seen); Hyaline Casts/LPF 0-3 HYALINE CAST LPF (0-3 Hyaline); Pathc Cast-AUWi Flag 0.58 (0-2.49); Squamous Epithelial 0-3 HPF (0-3); WBC/HPF 21-50 HPF (0-3)
[2018-10-28 14:26] LABS: Anion Gap 15 mmol/L (10-20); BUN (Urea Nitrogen) 28 mg/dL (9.8-20.1); Calc. Creatinine Clearance 0 mL/min (70-130); Calcium 10.6 mg/dL (7.8-10.44); Carbon Dioxide 24 mmol/L (23-31); Chloride 104 mmol/L (98-107); Estimated GFR-MDRD 29; Glucose 123 mg/dL (83-110); Potassium 3.5 mmol/L (3.5-5.1); Sodium 139 mmol/L (136-145)
[2018-10-28 14:27] LABS: #Basophils 0.1 thou/uL (0.0-0.2); #Lymphocytes 2.4 thou/uL (1.20-3.40); #Monocytes 0.6 thou/uL (0.11-0.59); #Neutrophils 7.5 thou/uL (1.40-6.50); %Basophils 0.5 % (0.0-1.0); %Eosinophils 0.1 % (0.0-10.0); %Lymphocytes 22.5 % (21.0-51.0); %Monocytes 5.8 % (0.0-10.0); Hemoglobin 11.3 g/dL (12.0-16.0); Mean Corpuscular HGB CONC 33.8 g/dL (32.0-36.0); Mean Corpuscular Hemoglobin 29.8 pg (27.0-31.0); Mean Corpuscular Volume 88.3 fL (78.0-98.0); Mean Platelet Volume 8.4 fL (7.4-10.4); Platelet Count 278 thou/uL (130-400); RBC Distribution Width 11.5 % (11.5-14.5); Red Blood Cell (RBC) Count 3.78 mill/uL (4.20-5.40); White Blood Cell (WBC) Count 10.5 thou/uL (4.8-10.8)
[2018-10-28 14:31] LABS: Crystals/HPF 1+ URIC ACID HPF (Negative); RBC/HPF None Seen HPF (0-3); Renal Epithelial None Seen HPF (0-3); Transitional Epithelial NONE SEEN HPF (0-3)
--- NOTE | 2018-10-29 18:57 | EKG ---
Test Reason : Blood Pressure : / mmHG Vent. Rate : 062 BPM Atrial Rate : 062 BPM P-R Int : 162 ms QRS Dur : 084 ms QT Int : 410 ms P-R-T Axes : 042 045 050 degrees QTc Int : 416 ms Normal sinus rhythm Normal ECG No previous ECGs available Confirmed by Jerry GARCIA ([id number]) on 10/29/2018 6:57:08 PM Referred By: ARIA Confirmed By:Jerry GARCIA
== END 2018-10-28 12:36 | disposition home or self-care (01) ==
LOC: LABBT 12:35
PROVIDERS: ATTEND Orthopaedic Surgery
DX: Z01.818 Encounter for other preprocedural examination (principal); M16.11 Unilateral primary osteoarthritis, right hip
CPT/HCPCS: 80048; 81001; 85025; 85610; 87081; 87086; 93005; 93010

== ENCOUNTER 2018-12-28 15:37 | Outpatient (CLI) | payer MEDICARE, OTHER ==
--- NOTE | 2018-12-28 16:24 | ULT ---
SONOGRAM ABDOMEN COMPLETE 12/28/18 HISTORY: Abdominal pain. Renal failure. FINDINGS: Echogenic stone is present within posterior aspect of the gallbladder fundus. No gallbladder wall thi ckening or pericholecystic fluid. Common duct is 0.6 cm. Liver unremarkable without focal mass or int rahepatic biliary dilatation. No free fluid. There is thinning of the cortex of each kidney. The sple en and visualized portions of the abdominal aorta and IVC and the pancreas have a normal sonographic appearance. IMPRESSION: 1. Cholelithiasis. No evidence of acute biliary obstruction. 2. Diffuse renal cortical atrophy, consistent with chronic medical renal disease. No evidence of urinary tract obstruction. POS: [facility]
--- NOTE | 2018-12-28 16:26 | ULT ---
SONOGRAM URINARY BLADDER 12/28/18 HISTORY: Worsening renal disease. Possible obstruction. FINDINGS: Urinary bladder has normal appearance with prevoid volume at 39 mL. Postvoid images were unable to be obtained due to patient needing to hold urine for another exam. IMPRESSION: Normal sonographic appearance of the urinary bladder. POS: [facility]
== END 2018-12-28 15:38 | disposition home or self-care (01) ==
LOC: ULT 15:37
PROVIDERS: ATTEND Internal Medicine
DX: N18.3 Chronic kidney disease, stage 3 (moderate) (principal); K80.20 Calculus of gallbladder without cholecystitis without obstruction; N26.1 Atrophy of kidney (terminal); Z13.6 Encounter for screening for cardiovascular disorders; N28.9 Disorder of kidney and ureter, unspecified; E55.9 Vitamin D deficiency, unspecified; D64.9 Anemia, unspecified
CPT/HCPCS: 76700; 76856; 80053; 80061; 82306; 82728; 83540; 83550; 85025

== ENCOUNTER 2019-01-11 14:17 | Outpatient (CLI) | payer MEDICARE, OTHER | END 2019-01-11 14:18 | disposition home or self-care (01) | LOC: BICMAMMO 14:17 | PROVIDERS: ATTEND Internal Medicine | DX: Z12.31 Encounter for screening mammogram for malignant neoplasm of breast (principal); Z98.890 Other specified postprocedural states | CPT/HCPCS: 77063; 77067 ==